=== PATIENT | male | born 1975 | race Caucasian/White ===

== ENCOUNTER 2016-10-01 02:38 | Emergency (ER) | payer BC, OTHER ==
[~2016-10-01] VITALS: Ht 185.4 cm; Wt 83.9 kg
[~2016-10-01 02:38] MED LIST: KEPPRA500 MG PO; KEPRA PO; LEXAPRO10 MG PO
[2016-10-01] MEDS ORDERED: KEPPRA XR500 MG ORAL (02:43)
[2016-10-01] MEDS ORDERED: STRATTERA10 MG PO (02:45)
[2016-10-01 02:50] VITALS: BP 108/76
[2016-10-01] MEDS ORDERED: levETIRAcetam 500 MG in D5W 110 ML IV ONE (03:00)
[2016-10-01] MEDS ORDERED: levETIRAcetam 500mg vial IV ONE (03:17)
[2016-10-01 03:23] LABS: BASOPHILS % (AUTO) 1.1 % (0.0-2.0); EOSINOPHILS % (AUTO) 2.3 % (0.0-3.0); LYMPHOCYTES % (AUTO) 35.3 % (20.0-45.0); MEAN CORPUSCULAR HEMOGLOBIN 30.4 PG (27.0-31.0); MEAN CORPUSCULAR HGB CONC 35.7 G/DL (32.0-36.0); MEAN CORPUSCULAR VOLUME 85 FL (80-99); MEAN PLATELET VOLUME 6.7 FL (6.5-10.1); MONOCYTES % (AUTO) 5.6 % (1.0-10.0); NEUTROPHILS % (AUTO) 55.7 % (45.0-75.0); PLATELET COUNT 237 K/UL (150-450); RED BLOOD COUNT 5.01 M/UL (4.70-6.10); RED CELL DISTRIBUTION WIDTH 10.5 % (11.6-14.8); WHITE BLOOD COUNT 8.7 K/UL (4.8-10.8)
[2016-10-01 03:38] LABS: ALANINE AMINOTRANSFERASE 42 U/L (3-41); ALBUMIN/GLOBULIN RATIO 1.8 (1.0-2.7); ANION GAP 16 (5-15); ASPARTATE AMINO TRANSFERASE 30 U/L (5-40); CALCIUM 9.2 mg/dL (8.6-10.2); CARBON DIOXIDE 23 mEQ/L (20-30); CHLORIDE 99 mEQ/L (98-107); GLOMERULAR FILTRATION RATE > 60 mL/min (>60); HEMOLYSIS 9; POTASSIUM 4.2 mEQ/L (3.4-4.9); SODIUM 138 mEQ/L (135-145); TOTAL PROTEIN 6.6 g/dL (6.6-8.7)
[2016-10-01] MEDS ORDERED: ATIVAN1 MG ORAL (03:54)
[2016-10-01] MEDS ORDERED: KEPPRA500 M4 ORAL (03:54)
[2016-10-01 04:00] VITALS: BP 113/78
[2016-10-01 04:07] VITALS: BP 108/76
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
== END 2016-10-01 04:07 | disposition home or self-care (01) ==
LOC: EDUNIT# 02:38 → EDBD 02:38 → EMR 03:05
DX: G40.409 Other generalized epilepsy and epileptic syndromes, not intractable, without status epilepticus (principal)
CPT/HCPCS: 36415; 80053; 82962; 85025; 96360; 99284; J1953